=== PATIENT | male | born 1965 | race Caucasian/White ===

== ENCOUNTER 2020-05-30 15:04 | Emergency (ER) | payer BC, OTHER ==
[2020-05-30 16:10] VITALS: BP 127/82
--- NOTE | 2020-05-30 16:16 | ER Document Report ---
ED Medical Screen (RME) - General Stated Complaint: RIGHT SIDE FACIAL SWELLING Time Seen by Provider: 05/30/20 16:12 Primary Care Provider: FRANCES GARCIA [Primary Care Provider] - Follow up as needed Notes: Patient c/o right upper dental pain x a few weeks but swelling worse over 3 days. Denies fever. + headache. That the swelling goes up into the right eye as well as the right upper neck. Saw Dr. Cooper ([facility]) at 2 pm today - sent to ER for further evaluation due to facial swelling. Physical Exam - Vital signs Vitals: Temp Pulse Resp BP Pulse Ox 99.3 F 110 H 16 127/82 H 100 05/30/20 16:07 05/30/20 16:07 05/30/20 16:07 05/30/20 16:07 05/30/20 16:07 Course - Re-evaluation Re-evalutation: 05/30/20 16:31 Edema noted to the right side of the face that extends to the lower orbit and right jawline. Will obtain basic labs, CT and initiate IV antibiotics. Patient's airway is patent. Patient able to swallow secretions. I have greeted and performed a rapid initial assessment of this patient. A comprehensive ED assessment and evaluation of the patient, analysis of test results and completion of the medical decision making process will be conducted by additional ED providers. - Vital Signs Vital signs: Temp Pulse Resp BP Pulse Ox 99.3 F 110 H 16 127/82 H 100 05/30/20 16:07 05/30/20 16:07 05/30/20 16:07 05/30/20 16:07 05/30/20 16:07 Doctor's Discharge - Discharge Referrals: FRANCES GARCIA [Primary Care Provider] - Follow up as needed
[2020-05-30] MEDS ORDERED: CLINDAMYCIN 600 MG/D5W RTU 600 MG/50 ML RTUPB IV ONE (16:17)
[2020-05-30] MEDS ORDERED: KETOROLAC TROMETHAMINE INJ/PF 30 MG/1 ML SDV IV ONE (16:17)
--- NOTE | 2020-05-30 16:38 | ER Document Report ---
HPI - HPI Time Seen by Provider: 05/30/20 16:12 Context: Patient is a 54-year-old male who presents emergency department with a chief complaint of dental pain. Patient was just at a dentist office, [facility] oromaxillary surgery when they sent him over here for facial swelling. He states that he had a right upper dental pain for the past few weeks but that the facial swelling started over the past 2 days. Patient denies sore throat or difficulty swallowing. Patient denies neck pain. Patient denies blurred vision. Patient states he was told that the tooth does need to be pulled. Patient denies fever. Patient reports mild discomfort. Past Medical History - General Information source: Patient - Social History Smoking Status: Unknown if Ever Smoked Lives with: Family Family History: None - Past Medical History Cardiac Medical History: Reports: None Pulmonary Medical History: Reports: None EENT Medical History: Reports: None Neurological Medical History: Reports: None Endocrine Medical History: Reports: None Renal/ Medical History: Reports: None Malignancy Medical History: Reports None GI Medical History: Reports: None Musculoskeletal Medical History: Reports None Skin Medical History: Reports None Psychiatric Medical History: Reports: None Traumatic Medical History: Reports: None Infectious Medical History: Reports: None Surgical Hx: Negative Vertical Provider Document - CONSTITUTIONAL Agree With Documented VS: Yes Exam Limitations: No Limitations General Appearance: No Apparent Distress - HEENT HEENT: Atraumatic, PERRLA Mouth Diagram: 1 - Tooth is loose, easily movable, gums erythematous on right upper mouth. Notes: Patient has edema noted to the right side of his face. Uvula is midline. Airway is patent. Tonsils are not enlarged or erythematous - NECK Neck: Normal Inspection Notes: No lymphadenopathy. - RESPIRATORY Respiratory: Breath Sounds Normal, No Respiratory Distress - CARDIOVASCULAR Cardiovascular: Regular Rate, Regular Rhythm - GI/ABDOMEN Gastrointestinal: Abdomen Soft, Abdomen Non-Tender - MUSCULOSKELETAL/EXTREMETIES Musculoskeletal/Extremeties: FROM - NEURO Level of Consciousness: Awake, Alert, Appropriate - DERM Integumentary: Warm, Dry, No Rash Course - Re-evaluation Re-evalutation: 05/30/20 16:36 I spoke with Nusrat at [facility] office who called the patient on his cell phone to state that they would like to see him right now in the main office to open up a dental abscess, do x-rays and treat him appropriately. Patient states he would like to do this as they could get him in right away. I do believe this is the best course of treatment at this time - patient agrees. Patient is in no acute distress and does know to return if symptoms change or worsen. 05/30/20 20:17 I did call and speak with the patient. He states he did go to the dentist office and had 2 teeth removed. Patient reports his facial swelling has already significantly improved. Patient denies questions or concerns. Patient has a follow-up appointment later this week with the dentist. - Vital Signs Vital signs: Temp Pulse Resp BP Pulse Ox 99.3 F 110 H 16 127/82 H 100 05/30/20 16:07 05/30/20 16:07 05/30/20 16:07 05/30/20 16:07 05/30/20 16:07 Discharge - Discharge Clinical Impression: Dental infection Condition: Stable Disposition: HOME, SELF-CARE Additional Instructions: Please go immediately to [facility] actual facial surgery to have the tooth abscess cut and drained so they can provide you with the appropriate treatment. If your symptoms are worse despite being started on antibiotics that were provided by her dentist please come to the emergency department immediately. Dental Infection or Abscess You have an infection, perhaps an abscess (pus formation) of the gum around one of your teeth, which is probably decayed. If there is an abscess, it may drain on its own or it may need to be opened or lanced. Severe swelling or drainage around a tooth usually means a deep dental abscess which usually requires evaluation and treatment by a dentist or oral surgeon. Antibiotics may be prescribed while awaiting dental treatment. If you develop high fever with chills, worsening pain, or increasing swelling in the area, see a dentist or oral surgeon immediately or return to the Emergency Department immediately. Referrals: LOCALMD,NO [NO LOCAL MD] - Follow up as needed
== END 2020-05-30 16:40 | disposition home or self-care (01) ==
LOC: ER 15:04
DX: K04.7 Periapical abscess without sinus (principal); K08.89 Other specified disorders of teeth and supporting structures
CPT/HCPCS: 99282

== ENCOUNTER 2020-06-23 09:19 | Day surgery (SDC) | payer OTHER, BC ==
[~2020-06-23 09:19] MED LIST: CEFAZOLIN 1 GM/D5W RTU 1 GM/50 ML RTUPB IV PRN; CEFAZOLIN 2 GM/D5W RTU 2 GM/50 ML RTUPB IV ONE; CEFAZOLIN 2 GM/D5W RTU 2 GM/50 ML RTUPB IV PRN
[2020-06-23] MEDS ORDERED: HYDROMORPHONE HCL INJ/PF 2 MG/ML AMPULE ONE (09:29)
[2020-06-23] MEDS ORDERED: FENTANYL CITRATE INJ/PF 100 MCG/2 ML AMPUL ONE (09:29)
[2020-06-23] MEDS ORDERED: MIDAZOLAM 2 MG/2 ML INJ ONE (09:29)
[2020-06-23] MEDS ORDERED: PROPOFOL INJ 200 MG/20 ML VIAL IV ONE (09:30)
[2020-06-23] MEDS ORDERED: BUPIVACAINE HCL 0.25% /EPINEPHRINE INJ/PF 30 ML SDV ONE (10:22)
[2020-06-23] MEDS ORDERED: BUPIVACAINE INJ/PF LIPOSOME/PF 266 MG/20 ML SDV ONE (10:42)
[2020-06-23] MEDS ORDERED: ONDANSETRON HCL INJ/PF 4 MG/2 ML SDV IV PRN (11:21)
[2020-06-23] MEDS ORDERED: MEPERIDINE HCL/PF INJ 25 MG/1 ML DISP.SYRIN IV PRN (11:21)
[2020-06-23] MEDS ORDERED: FENTANYL CITRATE INJ/PF 100 MCG/2 ML AMPUL IV PRN ×3 (11:21)
[2020-06-23] MEDS ORDERED: MORPHINE SULFATE 10 MG/ML INJ IV PRN (11:21)
[2020-06-23] MEDS ORDERED: DIPHENHYDRAMINE HCL 50 MG/ML VIAL IV PRN (11:21)
[2020-06-23] MEDS ORDERED: SUGAMMADEX SODIUM 200 MG/2 ML SDV IV ONE (11:36)
--- NOTE | 2020-06-23 11:56 | Operative Report ---
Nonrecallable Operative Report DATE OF SURGERY: 06/23/20 PREOPERATIVE DIAGNOSIS: Follow-up mesenteric duct cyst POSTOPERATIVE DIAGNOSIS: Umbilical hernia with possible umbilical abscess OPERATION: Repair of umbilical hernia with excision of umbilical stalk SURGEON: MIKE TILLEY [employer] ENGINEER: CANDELARIO CARRASCO ANESTHESIA: GA TISSUE REMOVED OR ALTERED: Umbilical stalk and abscess COMPLICATIONS: None ESTIMATED BLOOD LOSS: 2 cc INTRAOPERATIVE FINDINGS: Insuptated hair and abscess at the base of the umbilical stalk PROCEDURE: Patient was brought to the operating room awake alert stable condition placed on the operative table supine position induced under general anesthesia intubated. The abdomen was prepped and draped in usual sterile manner for the procedure. A supraumbilical incision was made transversely with a 15 blade dissection was carried down through subtenons tissue with Bovie cautery. There was a mass in the umbilical stalk it was firm we dissected around the umbilical stalk with a right angle clamp and placed a umbilical tape on that for traction. I then the umbilical stalk from the anterior abdominal fascia and there was a firm mass within the stalk itself and excised that it had intubated hair and sebum. We excised the umbilical stalk down up to the umbilical skin and remove that and sent that for pathology. I then closed the small umbilical fascial defect with 1 of #2 Vicryl and tacked the umbilical skin back down to the umbilical fascia with 3-0 Vicryl. We closed subcutaneous tissue with interrupted 3-0 Vicryl and skin with intracuticular 4-0 Maxon Steri-Strips completed the procedure. The patient was awakened in the operating extubated transferred recovery in stable condition. HERNANDEZ Glover was present for the entire procedure help with dissection wound retraction wound closure.
--- NOTE | 2020-06-23 12:01 | Discharge Summary ---
Discharge Summary (SDC) - Discharge Final Diagnosis: excision of umbilical mass Date of Surgery: 06/23/20 Discharge Date: 06/23/20 Condition: Good Treatment or Instructions: remove dressing in 48 hrs and replace iwth dry gauze Prescriptions: Hydrocodone/Acetaminophen [Garrison 10-325 mg Tablet] 1 tab PO Q6HP PRN #15 tablet PRN Reason: Discharge Diet: As Tolerated Discharge Activity: No Lifting Over 10 Pounds Home Care Assistance: None Needed Report the Following to Your Physician Immediately: Yellow Skin, Fever over 101 Degrees, Drainage-Foul Smelling - appoint with me in 7-10 days.
[2020-06-23] MEDS ORDERED: HYDROCODONE/ACETAMINOPHEN 10-325 MG TABLET PO PRN (12:02)
[2020-06-23 14:34] VITALS: BP 137/88
[2020-06-23] MEDS ORDERED: ONDANSETRON HCL INJ/PF 4 MG/2 ML SDV ONE (15:44)
[2020-06-23] MEDS ORDERED: ROCURONIUM BROMIDE INJ 50 MG/5 ML VIAL IV ONE (15:44)
[2020-06-23] MEDS ORDERED: NEOSTIGMINE METHYLSULFATE 10 MG/10 ML VIAL ONE (15:44)
[2020-06-23] MEDS ORDERED: GLYCOPYRROLATE 1 MG/5 ML VIAL ONE (15:44)
[2020-06-23] MEDS ORDERED: KETOROLAC TROMETHAMINE 60 MG/2 ML SDV ONE (15:44)
[2020-06-23] MEDS ORDERED: DEXAMETHASONE SOD PHOSPHATE INJ 4 MG/1 ML VIAL ONE (15:44)
== END 2020-06-23 14:15 | disposition home or self-care (01) ==
LOC: OROUT 09:19
PROVIDERS: ATTEND Surgery
DX: R19.05 Periumbilic swelling, mass or lump (principal); K42.9 Umbilical hernia without obstruction or gangrene; Z20.828 Contact with and (suspected) exposure to other viral communicable diseases
CPT/HCPCS: 49250; 87635; 88302 ×2; J2250; J3490 ×2; J1100; J1885; J3010; J2710; J1170; J2405; J2704; J0690; C9290; C9803; 750